=== PATIENT | male | born 1990 | race African-American/Black ===

== ENCOUNTER 2018-06-10 19:24 | Emergency (ER) | payer SELFPAY ==
[2018-06-10] MEDS ORDERED: Adacel (T-DAP) 0.5 ML SYRINGE ONE (20:42)
== END 2018-06-10 21:08 | disposition home or self-care (01) ==
LOC: ERS 19:24
DX: S60.512A Abrasion of left hand, initial encounter (principal); J45.909 Unspecified asthma, uncomplicated; W45.8XXA Other foreign body or object entering through skin, initial encounter
CPT/HCPCS: 12001; 90471; 90715